=== PATIENT | male | born 1955 ===

== ENCOUNTER 2022-04-12 17:51 | Inpatient (IN) | payer MEDICARE ==
--- NOTE | 2022-04-12 20:12 | XRay Report ---
CHEST 1 VIEW INDICATION: ams. COMPARISON: 03/14/2022 FINDINGS: SUPPORT DEVICES: None. HEART: Within normal limits. LUNGS/PLEURA: No acute air space or interstitial disease. ADDITIONAL FINDINGS: None. IMPRESSION: 1. No acute findings. Signer Name: Filiberto Sun MD Signed: 04/12/2022 8:08 PM Workstation Name: [id number]
--- NOTE | 2022-04-12 20:50 | Cat Scan Report ---
CT head/brain wo con INDICATION / CLINICAL INFORMATION: 66 years Male; ams. TECHNIQUE: Routine CT head without contrast. All CT scans at this location are performed using CT dos e reduction for ALARA by means of automated exposure control. COMPARISON: The study is compared to the previous CT of 03/14/2022. FINDINGS: BRAIN / INTRACRANIAL CONTENTS: The motion degrades image quality. However, there is continued mild ce rebral white matter disease most consistent with microvascular angiopathy. There is also persistent m ild cerebral atrophy. Ventricular system appears unchanged in size and configuration. There is no marina ar CT evidence of acute intracranial hemorrhage or significant mass effect. ORBITS: No significant abnormality of visualized orbits. SINUSES / MASTOIDS: No significant abnormality in the visualized paranasal sinuses or mastoid air cassia ls. CRANIOCERVICAL JUNCTION: No significant abnormality. ADDITIONAL FINDINGS: None. IMPRESSION: 1. The study is limited by motion. However, is continued mild microvascular angiopathy and cerebral a trophy without clear CT evidence of acute intracranial hemorrhage. Signer Name: Toby Tello MD Signed: 04/12/2022 8:46 PM Workstation Name: [id number]
[2022-04-12 21:15] LABS: INR 1.15 (0.87-1.13); Partial Thromboplastin Time 43.7 Sec. (24.2-36.6)
[2022-04-12 21:27] LABS: Alanine Aminotransferase 14 units/L (7-56); Albumin 3.5 g/dL (3.9-5); BUN/Creatinine Ratio 9; Blood Urea Nitrogen 13 mg/dL (9-20); Calcium 9.9 mg/dL (8.4-10.2); Hemolysis Index 7
--- NOTE | 2022-04-13 00:26 | Emergency Department Report ---
ED General Adult HPI - General Chief complaint: Altered Mental Status Stated complaint: AMS Time Seen by Provider: 04/12/22 19:47 Source: patient, EMS Mode of arrival: Stretcher Limitations: No Limitations - History of Present Illness Initial comments: Patient presents to the emergency department via EMS for altered mental status. Patient's family contacted EMS because the patient was outside laying on the ground with a jacket on. Patient is Syriac-speaking but is able to communicate in Martiniquais. Patient is definitely confused but denies having chest pain or shortness of breath -: unknown Improves with: none Worsens with: none Associated Symptoms: denies other symptoms Treatments Prior to Arrival: none - Related Data Home Medications Medication Instructions Recorded Confirmed Last Taken Citalopram Hydrobromide 10 mg PO DAILY 03/15/22 03/15/22 Unknown [Citalopram HBr] Pantoprazole Sodium 1 tab PO DAILY 03/15/22 03/15/22 Unknown Propranolol HCl 20 mg PO BID 03/15/22 03/15/22 Unknown Spironolactone [Aldactone] 25 mg PO QDAY 03/15/22 03/15/22 Unknown Previous Rx's Medication Instructions Recorded Last Taken Type Folic Acid [Folvite] 1 mg PO QDAY #30 03/18/22 Unknown Rx Lactulose 30 ml PO BID 30 Days #2 bottle 03/18/22 Unknown Rx Multivitamin Tab [Multiple Vitamin 1 each PO DAILY #30 tablet 03/18/22 Unknown Rx TAB (Theragran)] Rifaximin [Xifaxan] 550 mg PO BID #60 03/18/22 Unknown Rx Thiamine [Vitamin B-1] 100 mg PO QDAY #30 tablet 03/18/22 Unknown Rx cefUROXime [Ceftin] 2 tab PO Q12H #28 03/18/22 Unknown Rx Allergies Allergy/AdvReac Type Severity Reaction Status Date / Time No Known Allergies Allergy Verified 04/12/22 18:37 ED Review of Systems ROS: Stated complaint: AMS Other details as noted in HPI Comment: Unobtainable due to pts medical conditions ED Past Medical Hx - Past Medical History Hx Liver Disease: Yes - Social History Smoking Status: Never Smoker - Medications Home Medications: Home Medications Medication Instructions Recorded Confirmed Last Taken Type Citalopram Hydrobromide 10 mg PO DAILY 03/15/22 03/15/22 Unknown History [Citalopram HBr] Pantoprazole Sodium 1 tab PO DAILY 03/15/22 03/15/22 Unknown History Propranolol HCl 20 mg PO BID 03/15/22 03/15/22 Unknown History Spironolactone [Aldactone] 25 mg PO QDAY 03/15/22 03/15/22 Unknown History Folic Acid [Folvite] 1 mg PO QDAY #30 03/18/22 Unknown Rx Lactulose 30 ml PO BID 30 Days #2 bottle 03/18/22 Unknown Rx Multivitamin Tab [Multiple Vitamin 1 each PO DAILY #30 tablet 03/18/22 Unknown Rx TAB (Theragran)] Rifaximin [Xifaxan] 550 mg PO BID #60 03/18/22 Unknown Rx Thiamine [Vitamin B-1] 100 mg PO QDAY #30 tablet 03/18/22 Unknown Rx cefUROXime [Ceftin] 2 tab PO Q12H #28 03/18/22 Unknown Rx ED Physical Exam - General Limitations: Language Barrier, Altered Mental Status General appearance: alert, in no apparent distress - Head Head exam: Present: atraumatic, normocephalic - Eye Eye exam: Present: normal appearance, PERRL, EOMI - ENT ENT exam: Present: mucous membranes moist - Neck Neck exam: Present: normal inspection - Respiratory Respiratory exam: Present: normal lung sounds bilaterally. Absent: respiratory distress - Cardiovascular Cardiovascular Exam: Present: regular rate, normal rhythm. Absent: systolic murmur, diastolic murmur, rubs, gallop - GI/Abdominal GI/Abdominal exam: Present: soft, normal bowel sounds. Absent: distended, tenderness - Rectal Rectal exam: Present: deferred - Extremities Exam Extremities exam: Present: normal inspection - Back Exam Back exam: Present: normal inspection - Neurological Exam Neurological exam: Present: altered - Psychiatric Psychiatric exam: Present: normal affect, normal mood - Skin Skin exam: Present: warm, dry, intact, other (Jaundice). Absent: rash ED Course Vital Signs 04/12/22 18:35 Temperature 97.8 F Pulse Rate 87 Respiratory 18 Rate Blood Pressure 130/60 [Left] O2 Sat by Pulse 98 Oximetry ED Medical Decision Making - Lab Data Result diagrams: 04/13/22 00:53 04/12/22 20:43 Lab Results 04/12/22 04/12/22 04/12/22 Range/Units 20:43 20:43 20:43 PT 16.0 H (12.2-14.9) Sec. INR 1.15 H (0.87-1.13) APTT 43.7 H (24.2-36.6) Sec. Sodium 135 L (137-145) mmol/L Potassium 4.3 (3.6-5.0) mmol/L Chloride 103.8 (98-107) mmol/L Carbon Dioxide 18 L (22-30) mmol/L Anion Gap 18 mmol/L BUN 13 (9-20) mg/dL Creatinine 1.4 H (0.8-1.3) mg/dL Estimated GFR 51 ml/min BUN/Creatinine Ratio 9 % Glucose 122 H (75-100) mg/dL Lactic Acid 1.60 (0.7-2.0) mmol/L Calcium 9.9 (8.4-10.2) mg/dL Total Bilirubin 1.00 (0.1-1.2) mg/dL AST 26 (5-40) units/L ALT 14 (7-56) units/L Alkaline Phosphatase 88 (35-129) units/L Ammonia (25-60) umol/L Total Creatine Kinase 44 L (55-170) units/L Troponin T < 0.010 (0.00-0.029) ng/mL Total Protein 7.8 (6.3-8.2) g/dL Albumin 3.5 L (3.9-5) g/dL Albumin/Globulin Ratio 0.8 % TSH (0.270-4.200) mlU/mL Salicylates (2.8-20.0) mg/dL Acetaminophen (10.0-30.0) ug/mL Plasma/Serum Alcohol (0-0.07) % 04/12/22 04/12/22 04/12/22 Range/Units 20:43 20:43 20:43 PT (12.2-14.9) Sec. INR (0.87-1.13) APTT (24.2-36.6) Sec. Sodium (137-145) mmol/L Potassium (3.6-5.0) mmol/L Chloride (98-107) mmol/L Carbon Dioxide (22-30) mmol/L Anion Gap mmol/L BUN (9-20) mg/dL Creatinine (0.8-1.3) mg/dL Estimated GFR ml/min BUN/Creatinine Ratio % Glucose (75-100) mg/dL Lactic Acid (0.7-2.0) mmol/L Calcium (8.4-10.2) mg/dL Total Bilirubin (0.1-1.2) mg/dL AST (5-40) units/L ALT (7-56) units/L Alkaline Phosphatase (35-129) units/L Ammonia 40.0 (25-60) umol/L Total Creatine Kinase (55-170) units/L Troponin T (0.00-0.029) ng/mL Total Protein (6.3-8.2) g/dL Albumin (3.9-5) g/dL Albumin/Globulin Ratio % TSH 1.480 (0.270-4.200) mlU/mL Salicylates 1.5 L (2.8-20.0) mg/dL Acetaminophen (10.0-30.0) ug/mL Plasma/Serum Alcohol (0-0.07) % 04/12/22 04/12/22 Range/Units 20:43 20:43 PT (12.2-14.9) Sec. INR (0.87-1.13) APTT (24.2-36.6) Sec. Sodium (137-145) mmol/L Potassium (3.6-5.0) mmol/L Chloride (98-107) mmol/L Carbon Dioxide (22-30) mmol/L Anion Gap mmol/L BUN (9-20) mg/dL Creatinine (0.8-1.3) mg/dL Estimated GFR ml/min BUN/Creatinine Ratio % Glucose (75-100) mg/dL Lactic Acid (0.7-2.0) mmol/L Calcium (8.4-10.2) mg/dL Total Bilirubin (0.1-1.2) mg/dL AST (5-40) units/L ALT (7-56) units/L Alkaline Phosphatase (35-129) units/L Ammonia (25-60) umol/L Total Creatine Kinase (55-170) units/L Troponin T (0.00-0.029) ng/mL Total Protein (6.3-8.2) g/dL Albumin (3.9-5) g/dL Albumin/Globulin Ratio % TSH (0.270-4.200) mlU/mL Salicylates (2.8-20.0) mg/dL Acetaminophen 5.0 L (10.0-30.0) ug/mL Plasma/Serum Alcohol < 0.01 (0-0.07) % - EKG Data -: EKG Interpreted by Me EKG shows normal: sinus rhythm Rate: normal - Radiology Data Radiology results: report reviewed Critical care attestation.: If time is entered above; I have spent that time in minutes in the direct care of this critically ill patient, excluding procedure time. ED Disposition Clinical Impression: Altered mental status Disposition: ADMITTED INPATIENT Is pt being admited?: Yes Does the pt Need Aspirin: No Condition: Fair Referrals: PRIMARY CARE, [Primary Care Provider] - 3-5 Days
[2022-04-13 01:00] LABS: Basophils % (Auto) 0.2 % (0.0-1.8); Eosinophils % (Auto) 0.1 % (0.0-4.3); Hemoglobin 10.9 gm/dl (11.8-15.2); Lymphocytes # (Auto) 0.8 K/mm3 (1.2-5.4); Lymphocytes % (Auto) 6.5 % (13.4-35.0); Mean Corpuscular HGB Conc 32 % (32-34); Mean Corpuscular Volume 84 fl (84-94); Monocytes # (Auto) 0.9 K/mm3 (0.0-0.8); Monocytes % (Auto) 7.3 % (0.0-7.3); Red Blood Count 4.04 M/mm3 (3.65-5.03); Red Cell Distribution Width 14.5 % (13.2-15.2)
[2022-04-13 01:03] LABS: Platelet Count 71 K/mm3 (140-440)
[2022-04-13] MEDS ORDERED: ALBUTEROL 2.5 MG/3 ML NEBU IH PRN (03:47)
[2022-04-13] MEDS ORDERED: MORPHINE 4 MG/1 ML INJ IV PRN (03:47)
[2022-04-13] MEDS ORDERED: ONDANSETRON 4 MG/2 ML INJ IV PRN (03:47)
[2022-04-13] MEDS ORDERED: ACETAMINOPHEN 325 MG TAB PO PRN (03:47)
--- NOTE | 2022-04-13 03:55 | History and Physical Report ---
History of Present Illness Date of examination: 04/13/22 Date of admission: 04/13/22 Chief complaint: Altered mental status History of present illness: 66 years old male with history of alcohol abuse, hepatic cirrhosis, thrombocytopenia was brought to the emergency department via EMS for altered mental status. Patient's family contacted EMS because the patient was outside laying on the ground with a jacket on. Patient is English-speaking but is able to communicate in Maori. Patient is definitely confused but denies having chest pain or shortness of breath In the emergency room initial CT scan of the head shows no acute intracranial abnormality.work up showed normal ct and x ray , ua shwoed uti normal ammonia , abx given wbc is elevated Past History Past Medical History: liver disease, other (Alcohol abuse) Past Surgical History: No surgical history Social history: alcohol abuse Family history: no significant family history Medications and Allergies Allergies Allergy/AdvReac Type Severity Reaction Status Date / Time No Known Allergies Allergy Verified 04/12/22 18:37 Home Medications Medication Instructions Recorded Confirmed Last Taken Type Citalopram Hydrobromide 10 mg PO DAILY 03/15/22 03/15/22 Unknown History [Citalopram HBr] Pantoprazole Sodium 1 tab PO DAILY 03/15/22 03/15/22 Unknown History Propranolol HCl 20 mg PO BID 03/15/22 03/15/22 Unknown History Spironolactone [Aldactone] 25 mg PO QDAY 03/15/22 03/15/22 Unknown History Folic Acid [Folvite] 1 mg PO QDAY #30 03/18/22 Unknown Rx Lactulose 30 ml PO BID 30 Days #2 bottle 03/18/22 Unknown Rx Multivitamin Tab [Multiple Vitamin 1 each PO DAILY #30 tablet 03/18/22 Unknown Rx TAB (Theragran)] Rifaximin [Xifaxan] 550 mg PO BID #60 03/18/22 Unknown Rx Thiamine [Vitamin B-1] 100 mg PO QDAY #30 tablet 03/18/22 Unknown Rx cefUROXime [Ceftin] 2 tab PO Q12H #28 03/18/22 Unknown Rx Review of Systems All systems: negative Constitutional: fatigue, malaise, lethargy, other (Altered mental status) Exam - Constitutional Vitals: Temp Pulse Resp BP Pulse Ox 97.8 F 87 18 130/60 98 04/12/22 18:35 04/12/22 18:35 04/12/22 18:35 04/12/22 18:35 04/12/22 18:35 General appearance: Present: no acute distress, well-nourished - EENT Eyes: Present: PERRL ENT: hearing intact, clear oral mucosa - Neck Neck: Present: supple, normal ROM - Respiratory Respiratory effort: normal Respiratory: bilateral: CTA - Cardiovascular Heart Sounds: Present: S1 & S2. Absent: rub, click - Extremities Extremities: pulses symmetrical, No edema Peripheral Pulses: within normal limits - Abdominal General gastrointestinal: Present: soft, non-tender, non-distended, normal bowel sounds Male genitourinary: Present: normal - Integumentary Integumentary: Present: clear, warm, dry - Musculoskeletal Musculoskeletal: gait normal, strength equal bilaterally - Psychiatric Psychiatric: other (Patient is altered mental status) - Neurologic Neurologic: CNII-XII intact, moves all extremities HEART Score - HEART Score Troponin: Troponin T < 0.010 ng/mL (0.00-0.029) 04/12/22 20:43 Results - Labs CBC & Chem 7: 04/13/22 00:53 04/12/22 20:43 Labs: Laboratory Last Values WBC 12.3 K/mm3 (4.5-11.0) H 04/13/22 00:53 RBC 4.04 M/mm3 (3.65-5.03) 04/13/22 00:53 Hgb 10.9 gm/dl (11.8-15.2) L 04/13/22 00:53 Hct 34.0 % (35.5-45.6) L 04/13/22 00:53 MCV 84 fl (84-94) 04/13/22 00:53 MCH 27 pg (28-32) L 04/13/22 00:53 MCHC 32 % (32-34) 04/13/22 00:53 RDW 14.5 % (13.2-15.2) 04/13/22 00:53 Plt Count 71 K/mm3 (140-440) L 04/13/22 00:53 Lymph % (Auto) 6.5 % (13.4-35.0) L 04/13/22 00:53 [place] % (Auto) 7.3 % (0.0-7.3) 04/13/22 00:53 Eos % (Auto) 0.1 % (0.0-4.3) 04/13/22 00:53 Baso % (Auto) 0.2 % (0.0-1.8) 04/13/22 00:53 Lymph # (Auto) 0.8 K/mm3 (1.2-5.4) L 04/13/22 00:53 [place] # (Auto) 0.9 K/mm3 (0.0-0.8) H 04/13/22 00:53 Eos # (Auto) 0.0 K/mm3 (0.0-0.4) 04/13/22 00:53 Baso # (Auto) 0.0 K/mm3 (0.0-0.1) 04/13/22 00:53 Seg Neutrophils % 85.9 % (40.0-70.0) H 04/13/22 00:53 Seg Neutrophils # 10.6 K/mm3 (1.8-7.7) H 04/13/22 00:53 PT 16.0 Sec. (12.2-14.9) H 04/12/22 20:43 INR 1.15 (0.87-1.13) H 04/12/22 20:43 APTT 43.7 Sec. (24.2-36.6) H 04/12/22 20:43 Sodium 135 mmol/L (137-145) L 04/12/22 20:43 Potassium 4.3 mmol/L (3.6-5.0) 04/12/22 20:43 Chloride 103.8 mmol/L (98-107) 04/12/22 20:43 Carbon Dioxide 18 mmol/L (22-30) L 04/12/22 20:43 Anion Gap 18 mmol/L 04/12/22 20:43 BUN 13 mg/dL (9-20) 04/12/22 20:43 Creatinine 1.4 mg/dL (0.8-1.3) H 04/12/22 20:43 Estimated GFR 51 ml/min 04/12/22 20:43 BUN/Creatinine Ratio 9 % 04/12/22 20:43 Glucose 122 mg/dL (75-100) H 04/12/22 20:43 Lactic Acid 1.60 mmol/L (0.7-2.0) 04/12/22 20:43 Calcium 9.9 mg/dL (8.4-10.2) 04/12/22 20:43 Total Bilirubin 1.00 mg/dL (0.1-1.2) 04/12/22 20:43 AST 26 units/L (5-40) 04/12/22 20:43 ALT 14 units/L (7-56) 04/12/22 20:43 Alkaline Phosphatase 88 units/L (35-129) 04/12/22 20:43 Ammonia 40.0 umol/L (25-60) 04/12/22 20:43 Total Creatine Kinase 44 units/L (55-170) L 04/12/22 20:43 Troponin T < 0.010 ng/mL (0.00-0.029) 04/12/22 20:43 Total Protein 7.8 g/dL (6.3-8.2) 04/12/22 20:43 Albumin 3.5 g/dL (3.9-5) L 04/12/22 20:43 Albumin/Globulin Ratio 0.8 % 04/12/22 20:43 TSH 1.480 mlU/mL (0.270-4.200) 04/12/22 20:43 Salicylates 1.5 mg/dL (2.8-20.0) L 04/12/22 20:43 Acetaminophen 5.0 ug/mL (10.0-30.0) L 04/12/22 20:43 Plasma/Serum Alcohol < 0.01 % (0-0.07) 04/13/22 01:44 Microbiology: Microbiology 04/12/22 20:43 Peripheral/Venous Blood Culture - Preliminary Culture in Progress 04/12/22 20:43 Peripheral/Venous Blood Culture - Preliminary Culture in Progress - Imaging and Cardiology Chest x-ray: report reviewed CT Scan - head: report reviewed Assessment and Plan VTE prophylaxis?: Mechanical Plan of care discussed with patient/family: Yes - Patient Problems (1) Acute metabolic encephalopathy Current Visit: No Status: Acute Plan to address problem: Admit the patient to the medical floor telemetry. Acute metabolic encephalopathy is most likely secondary to UTI and liver cirrhosis. Oxygen via nasal cannula 3 L/min. DuoNeb by nebulizer every 4 hours. Pepcid 20 mg p.o. twice daily. Cipro Oxyzyme antibiotic orally. Recheck CBC BMP in the morning (2) Alcohol abuse Current Visit: No Status: Acute Plan to address problem: We will put the patient on thiamine folic acid and banana bag daily. We counseled the patient regarding quit drinking. (3) Cirrhosis Current Visit: No Status: Acute Plan to address problem: Pepcid 20 mg p.o. twice daily. Quit drinking. Continue home medication. Recheck CMP in the morning (4) Thrombocytopenia Current Visit: No Status: Acute Plan to address problem: We will monitor the patient closely. Recheck CBC in the morning (5) DVT prophylaxis Current Visit: No Status: Acute Plan to address problem: SCD for DVT prophylaxis. Pepcid 20 mg p.o. twice daily for GI prophylaxis. Patient is a full code
[2022-04-13] MEDS ORDERED: THIAMINE 100 MG, FOLIC ACID 1 MG, MULTIPLE VITAMIN INJ, ADULT 10 ML in SODIUM CHLORIDE ... IV ONE (04:30)
[2022-04-13] MEDS ORDERED: IPRATROPIUM/ALBUTEROL SULFATE 3 ML AMPUL.NEB IH SCH (08:00)
[2022-04-13] MEDS: D5W/0.45% NACL 1,000 ML IV SCH ×2 (08:20→18:44)
--- NOTE | 2022-04-13 09:22 | Progress Note ---
Assessment and Plan Assessment and plan: VTE prophylaxis?: Mechanical Plan of care discussed with patient/family: Yes --Acute metabolic encephalopathy Admit the patient to the medical floor telemetry. Acute metabolic encephalopathy is most likely secondary to UTI and liver cirrhosis. Oxygen via nasal cannula 3 L/min. DuoNeb by nebulizer every 4 hours. Pepcid 20 mg p.o. twice daily. Cipro Oxyzyme antibiotic orally. Recheck CBC BMP in the morning --Alcohol abuse We will put the patient on thiamine folic acid and banana bag daily. We counseled the patient regarding quit drinking. --Cirrhosis Pepcid 20 mg p.o. twice daily. Quit drinking. Continue home medication. Recheck CMP in the morning -- Thrombocytopenia We will monitor the patient closely. Due to alcoholic liver disease and cirrhosis Closely monitor -- DVT prophylaxis SCD for DVT prophylaxis. Pepcid 20 mg p.o. twice daily for GI prophylaxis. Patient is a full code Closely monitor the patient and adjust management as needed Plan of care reviewed with the patient and his nurse Closely monitor the patient Prolonged care inpatient; 35 minutes History Interval history: Seen and examined the patient at the bedside this morning Patient's chart and medications reviewed Patient was admitted for toxic metabolic encephalopathy, and alcohol withdrawals Patient is alert and awake responding appropriately Very minimal tremulousness Vital signs noted Hospitalist Physical - Constitutional Vitals: Temp Pulse Resp BP Pulse Ox 100.6 F H 66 15 104/52 97 04/13/22 08:27 04/13/22 08:27 04/13/22 08:27 04/13/22 08:27 04/13/22 08:27 General appearance: Present: no acute distress, well-nourished, obese - EENT Eyes: Present: PERRL, EOM intact - Neck Neck: Present: supple, normal ROM - Respiratory Respiratory effort: normal Respiratory: bilateral: diminished, negative: rales, rhonchi, wheezing - Cardiovascular Rhythm: regular Heart Sounds: Present: S1 & S2 - Extremities Extremities: no ischemia, No edema - Abdominal General gastrointestinal: soft, non-tender, non-distended, normal bowel sounds - Integumentary Integumentary: Present: clear, warm - Psychiatric Psychiatric: appropriate mood/affect, cooperative - Neurologic Neurologic: moves all extremities HEART Score - HEART Score Troponin: Troponin T < 0.010 ng/mL (0.00-0.029) 04/12/22 20:43 Results - Labs CBC & Chem 7: 04/14/22 04:47 04/14/22 04:47 Labs: Laboratory Last Values WBC 12.3 K/mm3 (4.5-11.0) H 04/13/22 00:53 RBC 4.04 M/mm3 (3.65-5.03) 04/13/22 00:53 Hgb 10.9 gm/dl (11.8-15.2) L 04/13/22 00:53 Hct 34.0 % (35.5-45.6) L 04/13/22 00:53 MCV 84 fl (84-94) 04/13/22 00:53 MCH 27 pg (28-32) L 04/13/22 00:53 MCHC 32 % (32-34) 04/13/22 00:53 RDW 14.5 % (13.2-15.2) 04/13/22 00:53 Plt Count 71 K/mm3 (140-440) L 04/13/22 00:53 Lymph % (Auto) 6.5 % (13.4-35.0) L 04/13/22 00:53 [place] % (Auto) 7.3 % (0.0-7.3) 04/13/22 00:53 Eos % (Auto) 0.1 % (0.0-4.3) 04/13/22 00:53 Baso % (Auto) 0.2 % (0.0-1.8) 04/13/22 00:53 Lymph # (Auto) 0.8 K/mm3 (1.2-5.4) L 04/13/22 00:53 [place] # (Auto) 0.9 K/mm3 (0.0-0.8) H 04/13/22 00:53 Eos # (Auto) 0.0 K/mm3 (0.0-0.4) 04/13/22 00:53 Baso # (Auto) 0.0 K/mm3 (0.0-0.1) 04/13/22 00:53 Seg Neutrophils % 85.9 % (40.0-70.0) H 04/13/22 00:53 Seg Neutrophils # 10.6 K/mm3 (1.8-7.7) H 04/13/22 00:53 PT 16.0 Sec. (12.2-14.9) H 04/12/22 20:43 INR 1.15 (0.87-1.13) H 04/12/22 20:43 APTT 43.7 Sec. (24.2-36.6) H 04/12/22 20:43 Sodium 135 mmol/L (137-145) L 04/12/22 20:43 Potassium 4.3 mmol/L (3.6-5.0) 04/12/22 20:43 Chloride 103.8 mmol/L (98-107) 04/12/22 20:43 Carbon Dioxide 18 mmol/L (22-30) L 04/12/22 20:43 Anion Gap 18 mmol/L 04/12/22 20:43 BUN 13 mg/dL (9-20) 04/12/22 20:43 Creatinine 1.4 mg/dL (0.8-1.3) H 04/12/22 20:43 Estimated GFR 51 ml/min 04/12/22 20:43 BUN/Creatinine Ratio 9 % 04/12/22 20:43 Glucose 122 mg/dL (75-100) H 04/12/22 20:43 Lactic Acid 1.60 mmol/L (0.7-2.0) 04/12/22 20:43 Calcium 9.9 mg/dL (8.4-10.2) 04/12/22 20:43 Total Bilirubin 1.00 mg/dL (0.1-1.2) 04/12/22 20:43 AST 26 units/L (5-40) 04/12/22 20:43 ALT 14 units/L (7-56) 04/12/22 20:43 Alkaline Phosphatase 88 units/L (35-129) 04/12/22 20:43 Ammonia 40.0 umol/L (25-60) 04/12/22 20:43 Total Creatine Kinase 44 units/L (55-170) L 04/12/22 20:43 Troponin T < 0.010 ng/mL (0.00-0.029) 04/12/22 20:43 Total Protein 7.8 g/dL (6.3-8.2) 04/12/22 20:43 Albumin 3.5 g/dL (3.9-5) L 04/12/22 20:43 Albumin/Globulin Ratio 0.8 % 04/12/22 20:43 TSH 1.480 mlU/mL (0.270-4.200) 04/12/22 20:43 Salicylates 1.5 mg/dL (2.8-20.0) L 04/12/22 20:43 Acetaminophen 5.0 ug/mL (10.0-30.0) L 04/12/22 20:43 Plasma/Serum Alcohol < 0.01 % (0-0.07) 04/13/22 01:44 Microbiology: Microbiology 04/12/22 20:43 Peripheral/Venous Blood Culture - Preliminary Culture in Progress 04/12/22 20:43 Peripheral/Venous Blood Culture - Preliminary Culture in Progress Active Medications - Current Medications Current Medications: Generic Name Dose Route Start Last Admin Trade Name Freq PRN Reason Stop Dose Admin Acetaminophen 650 mg 04/13/22 03:47 Acetaminophen 325 Mg Tab PO Q4H PRN Pain MILD(1-3)/Fever >100.5/LAINEZ Albuterol 2.5 mg 04/13/22 03:47 Albuterol 2.5 Mg/3 Ml Nebu IH Q3HRT PRN Shortness Of Breath Cefuroxime Axetil 500 mg 04/13/22 08:00 Cefuroxime 250 Mg Tab PO Q12H [facility] Famotidine 20 mg 04/13/22 10:00 Famotidine 20 Mg Tab PO BID NORMAN Folic Acid 1 mg 04/13/22 10:00 Folic Acid 1 Mg Tab PO QDAY [facility] Dextrose/Sodium Chloride 1,000 mls @ 100 mls/hr 04/13/22 04:00 04/13/22 08:20 D5/0.45ns IV 100 mls/hr DIRECT NORMAN Administration Lactulose 20 gm 04/13/22 10:00 Lactulose 20 Gm/30 Ml Oral Liqd PO BID [facility] Morphine Sulfate 2 mg 04/13/22 03:47 Morphine 2 Mg/1 Ml Inj IV Q4H PRN Pain, Moderate (4-6) Morphine Sulfate 4 mg 04/13/22 03:47 Morphine 4 Mg/1 Ml Inj IV Q4H PRN Pain , Severe (7-10) Multivitamins 1 each 04/13/22 10:00 Multivitamins ,Therapeutic Tab PO DAILY [facility] Ondansetron HCl 4 mg 04/13/22 03:47 Ondansetron 4 Mg/2 Ml Inj IV Q8H PRN Nausea And Vomiting Propranolol HCl 20 mg 04/13/22 10:00 Propranolol 10 Mg Tab PO BID [facility] Rifaximin 550 mg 04/13/22 10:00 Rifaximin 550 Mg Tab PO BID [facility] Sodium Chloride 10 ml 04/13/22 10:00 Sodium Chloride 0.9% 10 Ml Flush Syringe IV BID [facility] Sodium Chloride 10 ml 04/13/22 03:47 Sodium Chloride 0.9% 10 Ml Flush Syringe IV PRN PRN LINE FLUSH Spironolactone 25 mg 04/13/22 10:00 Spironolactone 25 Mg Tab PO QDAY [facility] Thiamine HCl 100 mg 04/13/22 10:00 Thiamine 100 Mg Tab PO QDAY [facility]
[2022-04-13] MEDS ORDERED: LACTULOSE ENEMA 1000 ML PR SCH ×2 (10:00)
--- NOTE | 2022-04-13 10:07 | Electrocardiograph Report ---
[facility] Test Date: 2022-04-12 Test Time: 19:40:02 Pat Name: COLLEEN MERCEDES Department: Room: A376 1 Gender: M [employer]: IZA : 1955 Requested By: SELAM PEARL Order Number: [id number] Reading MD: Jc Jimenez Measurements Intervals [place] Rate: 81 P: 38 MN: 254 QRS: 74 QRSD: 94 T: 42 QT: 365 QTc: 425 Interpretive Statements Sinus rhythm Prolonged [place] interval Compared to ECG 03/15/2022 07:05:40 No significant changes Electronically Signed On 04-13-2022 10:07:22 EDT by Jc Jimenez
[2022-04-13] MEDS: FOLIC ACID 1 MG TAB PO SCH (10:20)
[2022-04-13] MEDS: MORPHINE 2 MG/1 ML INJ IV PRN (10:20)
[2022-04-13] MEDS: LACTULOSE 20 GM/30 ML ORAL LIQD PO SCH ×2 (10:20→23:10)
[2022-04-13] MEDS: SPIRONOLACTONE 25 MG TAB PO SCH (10:20)
[2022-04-13] MEDS: THIAMINE 100 MG TAB PO SCH (10:21)
[2022-04-13] MEDS: MULTIVITAMINS ,THERAPEUTIC TAB PO SCH (10:21)
[2022-04-13] MEDS: RIFAXIMIN 550 MG TAB PO SCH ×2 (10:21→23:10)
[2022-04-13] MEDS: FAMOTIDINE 20 MG TAB PO SCH ×2 (10:21→23:10)
[2022-04-13] MEDS: PROPRANOLOL 10 MG TAB PO SCH ×2 (14:35→23:19)
[2022-04-14] MEDS: D5W/0.45% NACL 1,000 ML IV SCH ×2 (05:06→18:08)
[2022-04-14 05:29] LABS: Basophils % (Auto) 0.5 % (0.0-1.8); Eosinophils # (Auto) 0.1 K/mm3 (0.0-0.4); Eosinophils % (Auto) 3.5 % (0.0-4.3); Hematocrit 29.6 % (35.5-45.6); Hemoglobin 9.6 gm/dl (11.8-15.2); Lymphocytes # (Auto) 0.8 K/mm3 (1.2-5.4); Lymphocytes % (Auto) 18.9 % (13.4-35.0); Mean Corpuscular HGB Conc 32 % (32-34); Mean Corpuscular Volume 84 fl (84-94); Monocytes # (Auto) 0.5 K/mm3 (0.0-0.8); Monocytes % (Auto) 12.7 % (0.0-7.3); Red Blood Count 3.51 M/mm3 (3.65-5.03); Red Cell Distribution Width 14.7 % (13.2-15.2)
[2022-04-14 05:30] LABS: Platelet Count 54 K/mm3 (140-440)
[2022-04-14 05:49] LABS: Alanine Aminotransferase 14 units/L (7-56); Albumin 2.7 g/dL (3.9-5); BUN/Creatinine Ratio 12; Blood Urea Nitrogen 14 mg/dL (9-20); Calcium 8.5 mg/dL (8.4-10.2); Hemolysis Index 81
[2022-04-14] MEDS: MULTIVITAMINS ,THERAPEUTIC TAB PO SCH (12:39)
[2022-04-14] MEDS: LACTULOSE 20 GM/30 ML ORAL LIQD PO SCH ×2 (12:39→23:18)
[2022-04-14] MEDS: RIFAXIMIN 550 MG TAB PO SCH ×2 (12:39→23:18)
[2022-04-14] MEDS: FAMOTIDINE 20 MG TAB PO SCH ×2 (12:40→23:18)
[2022-04-14] MEDS: THIAMINE 100 MG TAB PO SCH (12:40)
[2022-04-14] MEDS: PROPRANOLOL 10 MG TAB PO SCH ×2 (12:45→23:00)
[2022-04-14] MEDS: FOLIC ACID 1 MG TAB PO SCH (12:46)
[2022-04-14] MEDS: SPIRONOLACTONE 25 MG TAB PO SCH (12:46)
--- NOTE | 2022-04-14 19:26 | Progress Note ---
Assessment and Plan Assessment and plan: VTE prophylaxis?: Mechanical Plan of care discussed with patient/family: Yes --Acute metabolic encephalopathy Admit the patient to the medical floor telemetry. Acute metabolic encephalopathy is most likely secondary to UTI and liver cirrhosis. Oxygen via nasal cannula 3 L/min. DuoNeb by nebulizer every 4 hours. Pepcid 20 mg p.o. twice daily. Cipro Oxyzyme antibiotic orally. Recheck CBC BMP in the morning --Alcohol abuse We will put the patient on thiamine folic acid and banana bag daily. We counseled the patient regarding quit drinking. --Cirrhosis Pepcid 20 mg p.o. twice daily. Quit drinking. Continue home medication. Recheck CMP in the morning -- Thrombocytopenia We will monitor the patient closely. Due to alcoholic liver disease and cirrhosis Closely monitor -- DVT prophylaxis SCD for DVT prophylaxis. Pepcid 20 mg p.o. twice daily for GI prophylaxis. Patient is a full code Closely monitor the patient and adjust management as needed Plan of care reviewed with the patient and his nurse Closely monitor the patient 04/14/2022; patient's symptoms significantly improved Today patient is more alert and awake, ambulate as tolerated Possible discharge in 1 to 2 days if stable History Interval history: I have seen and examined the patient at the bedside Patient's chart and medications reviewed Patient feels slightly better Mild tremulousness probably his baseline Vital signs noted Hospitalist Physical - Constitutional Vitals: Temp Pulse Resp BP Pulse Ox 98.5 F 58 L 16 119/65 98 04/14/22 12:47 04/14/22 12:47 04/14/22 12:47 04/14/22 12:47 04/14/22 12:47 General appearance: Present: no acute distress, well-nourished, obese - EENT Eyes: Present: PERRL, EOM intact - Neck Neck: Present: supple, normal ROM - Respiratory Respiratory effort: normal Respiratory: bilateral: diminished, negative: rales, rhonchi, wheezing - Cardiovascular Rhythm: regular Heart Sounds: Present: S1 & S2 - Extremities Extremities: no ischemia, No edema - Abdominal General gastrointestinal: soft, non-tender, non-distended, normal bowel sounds - Integumentary Integumentary: Present: clear, warm - Psychiatric Psychiatric: appropriate mood/affect, cooperative - Neurologic Neurologic: CNII-XII intact, moves all extremities HEART Score - HEART Score Troponin: Troponin T < 0.010 ng/mL (0.00-0.029) 04/12/22 20:43 Results - Labs CBC & Chem 7: 04/14/22 04:47 04/14/22 04:47 Labs: Laboratory Last Values WBC 4.3 K/mm3 (4.5-11.0) L 04/14/22 04:47 RBC 3.51 M/mm3 (3.65-5.03) L 04/14/22 04:47 Hgb 9.6 gm/dl (11.8-15.2) L 04/14/22 04:47 Hct 29.6 % (35.5-45.6) L 04/14/22 04:47 MCV 84 fl (84-94) 04/14/22 04:47 MCH 27 pg (28-32) L 04/14/22 04:47 MCHC 32 % (32-34) 04/14/22 04:47 RDW 14.7 % (13.2-15.2) 04/14/22 04:47 Plt Count 54 K/mm3 (140-440) L 04/14/22 04:47 Lymph % (Auto) 18.9 % (13.4-35.0) 04/14/22 04:47 [place] % (Auto) 12.7 % (0.0-7.3) H 04/14/22 04:47 Eos % (Auto) 3.5 % (0.0-4.3) 04/14/22 04:47 Baso % (Auto) 0.5 % (0.0-1.8) 04/14/22 04:47 Lymph # (Auto) 0.8 K/mm3 (1.2-5.4) L 04/14/22 04:47 [place] # (Auto) 0.5 K/mm3 (0.0-0.8) 04/14/22 04:47 Eos # (Auto) 0.1 K/mm3 (0.0-0.4) 04/14/22 04:47 Baso # (Auto) 0.0 K/mm3 (0.0-0.1) 04/14/22 04:47 Seg Neutrophils % 64.4 % (40.0-70.0) 04/14/22 04:47 Seg Neutrophils # 2.8 K/mm3 (1.8-7.7) 04/14/22 04:47 PT 16.0 Sec. (12.2-14.9) H 04/12/22 20:43 INR 1.15 (0.87-1.13) H 04/12/22 20:43 APTT 43.7 Sec. (24.2-36.6) H 04/12/22 20:43 Sodium 137 mmol/L (137-145) 04/14/22 04:47 Potassium 3.9 mmol/L (3.6-5.0) 04/14/22 04:47 Chloride 110.3 mmol/L (98-107) H 04/14/22 04:47 Carbon Dioxide 18 mmol/L (22-30) L 04/14/22 04:47 Anion Gap 13 mmol/L 04/14/22 04:47 BUN 14 mg/dL (9-20) 04/14/22 04:47 Creatinine 1.2 mg/dL (0.8-1.3) 04/14/22 04:47 Estimated GFR > 60 ml/min 04/14/22 04:47 BUN/Creatinine Ratio 12 % 04/14/22 04:47 Glucose 94 mg/dL (75-100) 04/14/22 04:47 Lactic Acid 1.60 mmol/L (0.7-2.0) 04/12/22 20:43 Calcium 8.5 mg/dL (8.4-10.2) 04/14/22 04:47 Total Bilirubin 0.70 mg/dL (0.1-1.2) 04/14/22 04:47 AST 36 units/L (5-40) 04/14/22 04:47 ALT 14 units/L (7-56) 04/14/22 04:47 Alkaline Phosphatase 64 units/L (35-129) 04/14/22 04:47 Ammonia 40.0 umol/L (25-60) 04/12/22 20:43 Total Creatine Kinase 44 units/L (55-170) L 04/12/22 20:43 Troponin T < 0.010 ng/mL (0.00-0.029) 04/12/22 20:43 Total Protein 6.6 g/dL (6.3-8.2) 04/14/22 04:47 Albumin 2.7 g/dL (3.9-5) L 04/14/22 04:47 Albumin/Globulin Ratio 0.7 % 04/14/22 04:47 TSH 1.480 mlU/mL (0.270-4.200) 04/12/22 20:43 Salicylates 1.5 mg/dL (2.8-20.0) L 04/12/22 20:43 Acetaminophen 5.0 ug/mL (10.0-30.0) L 04/12/22 20:43 Plasma/Serum Alcohol < 0.01 % (0-0.07) 04/13/22 01:44 Microbiology: Microbiology 04/12/22 20:43 Peripheral/Venous Blood Culture - Preliminary NO GROWTH AFTER 24 HOURS 04/12/22 20:43 Peripheral/Venous Blood Culture - Preliminary NO GROWTH AFTER 24 HOURS Peres/IV: Voiding Method Toilet Active Medications - Current Medications Current Medications: Generic Name Dose Route Start Last Admin Trade Name Freq PRN Reason Stop Dose Admin Acetaminophen 650 mg 04/13/22 03:47 04/13/22 10:20 Acetaminophen 325 Mg Tab PO 650 mg Q4H PRN Administration Pain MILD(1-3)/Fever >100.5/LAINEZ Albuterol 2.5 mg 04/13/22 03:47 Albuterol 2.5 Mg/3 Ml Nebu IH Q3HRT PRN Shortness Of Breath Famotidine 20 mg 04/13/22 10:00 04/14/22 12:40 Famotidine 20 Mg Tab PO 20 mg BID NORMAN Administration Folic Acid 1 mg 04/13/22 10:00 04/14/22 12:46 Folic Acid 1 Mg Tab PO 1 mg QDAY NORMAN Administration Dextrose/Sodium Chloride 1,000 mls @ 100 mls/hr 04/13/22 04:00 04/14/22 18:08 D5/0.45ns IV 100 mls/hr DIRECT NORMAN Administration Lactulose 20 gm 04/13/22 10:00 04/14/22 12:39 Lactulose 20 Gm/30 Ml Oral Liqd PO 20 gm BID NORMAN Administration Morphine Sulfate 2 mg 04/13/22 03:47 04/13/22 10:20 Morphine 2 Mg/1 Ml Inj IV 2 mg Q4H PRN Administration Pain, Moderate (4-6) Morphine Sulfate 4 mg 04/13/22 03:47 Morphine 4 Mg/1 Ml Inj IV Q4H PRN Pain , Severe (7-10) Multivitamins 1 each 04/13/22 10:00 04/14/22 12:39 Multivitamins ,Therapeutic Tab PO 1 each DAILY NORMAN Administration Ondansetron HCl 4 mg 04/13/22 03:47 Ondansetron 4 Mg/2 Ml Inj IV Q8H PRN Nausea And Vomiting Propranolol HCl 20 mg 04/13/22 10:00 04/14/22 12:45 Propranolol 10 Mg Tab PO 20 mg BID NORMAN Administration Rifaximin 550 mg 04/13/22 10:00 04/14/22 12:39 Rifaximin 550 Mg Tab PO 550 mg BID NORMAN Administration Sodium Chloride 10 ml 04/13/22 10:00 04/14/22 12:40 Sodium Chloride 0.9% 10 Ml Flush Syringe IV 10 ml BID NORMAN Administration Sodium Chloride 10 ml 04/13/22 03:47 Sodium Chloride 0.9% 10 Ml Flush Syringe IV PRN PRN LINE FLUSH Spironolactone 25 mg 04/13/22 10:00 04/14/22 12:46 Spironolactone 25 Mg Tab PO 25 mg QDAY NORMAN Administration Thiamine HCl 100 mg 04/13/22 10:00 04/14/22 12:40 Thiamine 100 Mg Tab PO 100 mg QDAY NORMAN Administration
--- NOTE | 2022-04-15 08:22 | Progress Note ---
Assessment and Plan Assessment and plan: VTE prophylaxis?: Mechanical Plan of care discussed with patient/family: Yes --Acute metabolic encephalopathy Admit the patient to the medical floor telemetry. Acute metabolic encephalopathy is most likely secondary to UTI and liver cirrhosis. Oxygen via nasal cannula 3 L/min. DuoNeb by nebulizer every 4 hours. Pepcid 20 mg p.o. twice daily. Cipro Oxyzyme antibiotic orally. Recheck CBC BMP in the morning --Alcohol abuse We will put the patient on thiamine folic acid and banana bag daily. We counseled the patient regarding quit drinking. --Cirrhosis Pepcid 20 mg p.o. twice daily. Quit drinking. Continue home medication. Recheck CMP in the morning -- Thrombocytopenia We will monitor the patient closely. Due to alcoholic liver disease and cirrhosis Closely monitor -- DVT prophylaxis SCD for DVT prophylaxis. Pepcid 20 mg p.o. twice daily for GI prophylaxis. Patient is a full code Closely monitor the patient and adjust management as needed Plan of care reviewed with the patient and his nurse Closely monitor the patient 04/14/2022; patient's symptoms significantly improved Today patient is more alert and awake, ambulate as tolerated Possible discharge in 1 to 2 days if stable 04/15/22; follow PT evaluation, out of bed to chair Ambulate as tolerated, possible discharge tomorrow if stable History Interval history: I have seen and examined the patient at the bedside Patient's chart and medications reviewed Patient is more alert and awake today Intermittent lethargy, probably secondary to medications Vital signs collateral No new overnight events reported by the nursing Hospitalist Physical - Constitutional Vitals: Temp Pulse Resp BP Pulse Ox 98.5 F 60 20 104/40 98 04/15/22 05:28 04/15/22 05:28 04/15/22 05:28 04/15/22 05:28 04/15/22 05:28 General appearance: Present: no acute distress, well-nourished, obese - EENT Eyes: Present: PERRL, EOM intact - Neck Neck: Present: supple, normal ROM - Respiratory Respiratory effort: normal Respiratory: bilateral: diminished, negative: rales, rhonchi, wheezing - Cardiovascular Rhythm: regular Heart Sounds: Present: S1 & S2 - Extremities Extremities: no ischemia, No edema - Abdominal General gastrointestinal: soft, non-tender, non-distended, normal bowel sounds - Integumentary Integumentary: Present: clear, warm - Psychiatric Psychiatric: appropriate mood/affect, other (Lethargic some cognitive medications) - Neurologic Neurologic: moves all extremities HEART Score - HEART Score Troponin: Troponin T < 0.010 ng/mL (0.00-0.029) 04/12/22 20:43 Results - Labs CBC & Chem 7: 04/14/22 04:47 04/14/22 04:47 Labs: Laboratory Last Values WBC 4.3 K/mm3 (4.5-11.0) L 04/14/22 04:47 RBC 3.51 M/mm3 (3.65-5.03) L 04/14/22 04:47 Hgb 9.6 gm/dl (11.8-15.2) L 04/14/22 04:47 Hct 29.6 % (35.5-45.6) L 04/14/22 04:47 MCV 84 fl (84-94) 04/14/22 04:47 MCH 27 pg (28-32) L 04/14/22 04:47 MCHC 32 % (32-34) 04/14/22 04:47 RDW 14.7 % (13.2-15.2) 04/14/22 04:47 Plt Count 54 K/mm3 (140-440) L 04/14/22 04:47 Lymph % (Auto) 18.9 % (13.4-35.0) 04/14/22 04:47 [place] % (Auto) 12.7 % (0.0-7.3) H 04/14/22 04:47 Eos % (Auto) 3.5 % (0.0-4.3) 04/14/22 04:47 Baso % (Auto) 0.5 % (0.0-1.8) 04/14/22 04:47 Lymph # (Auto) 0.8 K/mm3 (1.2-5.4) L 04/14/22 04:47 [place] # (Auto) 0.5 K/mm3 (0.0-0.8) 04/14/22 04:47 Eos # (Auto) 0.1 K/mm3 (0.0-0.4) 04/14/22 04:47 Baso # (Auto) 0.0 K/mm3 (0.0-0.1) 04/14/22 04:47 Seg Neutrophils % 64.4 % (40.0-70.0) 04/14/22 04:47 Seg Neutrophils # 2.8 K/mm3 (1.8-7.7) 04/14/22 04:47 PT 16.0 Sec. (12.2-14.9) H 04/12/22 20:43 INR 1.15 (0.87-1.13) H 04/12/22 20:43 APTT 43.7 Sec. (24.2-36.6) H 04/12/22 20:43 Sodium 137 mmol/L (137-145) 04/14/22 04:47 Potassium 3.9 mmol/L (3.6-5.0) 04/14/22 04:47 Chloride 110.3 mmol/L (98-107) H 04/14/22 04:47 Carbon Dioxide 18 mmol/L (22-30) L 04/14/22 04:47 Anion Gap 13 mmol/L 04/14/22 04:47 BUN 14 mg/dL (9-20) 04/14/22 04:47 Creatinine 1.2 mg/dL (0.8-1.3) 04/14/22 04:47 Estimated GFR > 60 ml/min 04/14/22 04:47 BUN/Creatinine Ratio 12 % 04/14/22 04:47 Glucose 94 mg/dL (75-100) 04/14/22 04:47 Lactic Acid 1.60 mmol/L (0.7-2.0) 04/12/22 20:43 Calcium 8.5 mg/dL (8.4-10.2) 04/14/22 04:47 Total Bilirubin 0.70 mg/dL (0.1-1.2) 04/14/22 04:47 AST 36 units/L (5-40) 04/14/22 04:47 ALT 14 units/L (7-56) 04/14/22 04:47 Alkaline Phosphatase 64 units/L (35-129) 04/14/22 04:47 Ammonia 40.0 umol/L (25-60) 04/12/22 20:43 Total Creatine Kinase 44 units/L (55-170) L 04/12/22 20:43 Troponin T < 0.010 ng/mL (0.00-0.029) 04/12/22 20:43 Total Protein 6.6 g/dL (6.3-8.2) 04/14/22 04:47 Albumin 2.7 g/dL (3.9-5) L 04/14/22 04:47 Albumin/Globulin Ratio 0.7 % 04/14/22 04:47 TSH 1.480 mlU/mL (0.270-4.200) 04/12/22 20:43 Salicylates 1.5 mg/dL (2.8-20.0) L 04/12/22 20:43 Acetaminophen 5.0 ug/mL (10.0-30.0) L 04/12/22 20:43 Plasma/Serum Alcohol < 0.01 % (0-0.07) 04/13/22 01:44 Microbiology: Microbiology 04/12/22 20:43 Peripheral/Venous Blood Culture - Preliminary NO GROWTH AFTER 48 HOURS 04/12/22 20:43 Peripheral/Venous Blood Culture - Preliminary NO GROWTH AFTER 48 HOURS Peres/IV: Voiding Method Toilet Active Medications - Current Medications Current Medications: Generic Name Dose Route Start Last Admin Trade Name Freq PRN Reason Stop Dose Admin Acetaminophen 650 mg 04/13/22 03:47 04/13/22 10:20 Acetaminophen 325 Mg Tab PO 650 mg Q4H PRN Administration Pain MILD(1-3)/Fever >100.5/LAINEZ Albuterol 2.5 mg 04/13/22 03:47 Albuterol 2.5 Mg/3 Ml Nebu IH Q3HRT PRN Shortness Of Breath Famotidine 20 mg 04/13/22 10:00 04/14/22 23:18 Famotidine 20 Mg Tab PO 20 mg BID NORMAN Administration Folic Acid 1 mg 04/13/22 10:00 04/14/22 12:46 Folic Acid 1 Mg Tab PO 1 mg QDAY NORMAN Administration Dextrose/Sodium Chloride 1,000 mls @ 100 mls/hr 04/13/22 04:00 04/14/22 18:08 D5/0.45ns IV 100 mls/hr DIRECT NORMAN Administration Lactulose 20 gm 04/13/22 10:00 04/14/22 23:18 Lactulose 20 Gm/30 Ml Oral Liqd PO 20 gm BID NORMAN Administration Morphine Sulfate 2 mg 04/13/22 03:47 04/13/22 10:20 Morphine 2 Mg/1 Ml Inj IV 2 mg Q4H PRN Administration Pain, Moderate (4-6) Morphine Sulfate 4 mg 04/13/22 03:47 Morphine 4 Mg/1 Ml Inj IV Q4H PRN Pain , Severe (7-10) Multivitamins 1 each 04/13/22 10:00 04/14/22 12:39 Multivitamins ,Therapeutic Tab PO 1 each DAILY NORMAN Administration Ondansetron HCl 4 mg 04/13/22 03:47 Ondansetron 4 Mg/2 Ml Inj IV Q8H PRN Nausea And Vomiting Propranolol HCl 20 mg 04/13/22 10:00 04/14/22 23:00 Propranolol 10 Mg Tab PO Not Given BID NORMAN Rifaximin 550 mg 04/13/22 10:00 04/14/22 23:18 Rifaximin 550 Mg Tab PO 550 mg BID NORMAN Administration Sodium Chloride 10 ml 04/13/22 10:00 04/14/22 23:19 Sodium Chloride 0.9% 10 Ml Flush Syringe IV 10 ml BID NORMAN Administration Sodium Chloride 10 ml 04/13/22 03:47 Sodium Chloride 0.9% 10 Ml Flush Syringe IV PRN PRN LINE FLUSH Spironolactone 25 mg 04/13/22 10:00 04/14/22 12:46 Spironolactone 25 Mg Tab PO 25 mg QDAY NORMAN Administration Thiamine HCl 100 mg 04/13/22 10:00 04/14/22 12:40 Thiamine 100 Mg Tab PO 100 mg QDAY NORMAN Administration
[2022-04-15] MEDS: THIAMINE 100 MG TAB PO SCH (09:27)
[2022-04-15] MEDS: MULTIVITAMINS ,THERAPEUTIC TAB PO SCH (09:28)
[2022-04-15] MEDS: RIFAXIMIN 550 MG TAB PO SCH ×2 (09:28→22:38)
[2022-04-15] MEDS: PROPRANOLOL 10 MG TAB PO SCH (09:28)
[2022-04-15] MEDS: SPIRONOLACTONE 25 MG TAB PO SCH (09:28)
[2022-04-15] MEDS: LACTULOSE 20 GM/30 ML ORAL LIQD PO SCH ×2 (09:29→22:40)
[2022-04-15] MEDS: FOLIC ACID 1 MG TAB PO SCH (09:29)
[2022-04-15] MEDS: MORPHINE 2 MG/1 ML INJ IV PRN (09:29)
[2022-04-15] MEDS: FAMOTIDINE 20 MG TAB PO SCH ×2 (09:29→22:39)
[2022-04-15] MEDS: D5W/0.45% NACL 1,000 ML IV SCH (09:30)
[2022-04-15] MEDS ORDERED: MORPHINE 2 MG/1 ML INJ IV PRN (18:05)
[2022-04-16] MEDS: PROPRANOLOL 10 MG TAB PO SCH ×2 (00:11→11:18)
[2022-04-16] MEDS: SPIRONOLACTONE 25 MG TAB PO SCH (11:18)
[2022-04-16] MEDS: RIFAXIMIN 550 MG TAB PO SCH (11:18)
[2022-04-16] MEDS: FAMOTIDINE 20 MG TAB PO SCH (11:18)
[2022-04-16] MEDS: THIAMINE 100 MG TAB PO SCH (11:18)
[2022-04-16] MEDS: MULTIVITAMINS ,THERAPEUTIC TAB PO SCH (11:18)
[2022-04-16] MEDS: LACTULOSE 20 GM/30 ML ORAL LIQD PO SCH (11:19)
[2022-04-16 12:11] VITALS: BP 109/61
--- NOTE | 2022-04-16 12:46 | Discharge Summary ---
Providers - Providers Date of Admission: 04/13/22 03:47 Date of discharge: 04/16/22 Attending physician: SELAM PEARL 04/14/22 19:31 Physical Therapy Evaluation and Treat [CONS] Routine Comment: Discharge needs Reason For Exam: Altered level of consciousness/evaluate and treat Primary care physician: [employer] Hospitalization Reason for admission: Acute toxic metabolic encephalopathy/AMS Condition: Fair Pertinent studies: CT head without contrast; mild microvascular angiopathy, cerebral atrophy withou t clear CT evidence of acute abnormality Chest x-ray; no acute abnormality noted Hospital course: Very pleasant 66-year-old male with significant past medical history of chronic alcohol abuse hepatic cirrhosis thrombocytopenia recurrent admissions in the past was admitted through emergency room with altered level of consciousness, acute toxic metabolic encephalopathy CT head without contrast did not show any acute abnormalities Patient was noted to be in alcohol withdrawal symptoms patient was admitted closely monitored medications optimized patient remains confused next 2 to 3 days afforded admission sometimes requiring restraints for safety. Patient was closely monitored for alcohol withdrawal symptoms. Discharge [facility] protocol\ Patient's symptoms slowly but gradually improved Today is comfortable no new complaints, vital signs stable, physical examination prior to discharge is unremarkable Patient is stable , ambulatory in room without support Patient is stable at discharge. Advised to follow-up with primary care physician, advised to seek alcohol rehabilitation [place] Discharge diagnosis: --Acute toxic metabolic encephalopathy Admit the patient to the medical floor telemetry. Acute metabolic encephalopathy is most likely secondary to UTI and liver cirrhosis. Oxygen via nasal cannula 3 L/min. DuoNeb by nebulizer every 4 hours. Pepcid 20 mg p.o. twice daily. Cipro Oxyzyme antibiotic orally. Recheck CBC BMP in the morning --Alcohol abuse We will put the patient on thiamine folic acid and banana bag daily. We counseled the patient regarding quit drinking. --Alcohol withdrawal symptoms/very mild Resolved -Cirrhosis liver Pepcid 20 mg p.o. twice daily. Quit drinking. Continue home medication. Recheck CMP in the morning -- Thrombocytopenia We will monitor the patient closely. Due to alcoholic liver disease and cirrhosis Closely monitor -Obesity BMI 35.9 Advised diet modification, exercise as tolerated, weight reduction when medically stable --Severe protein calorie malnutrition; Nutrition supplements and supportive care Nutrition consult if needed --Severe hypoalbuminemia; albumin 2.7 Nutrition supplements and supportive care Strongly advised to quit alcohol, continue vitamins Thiamine folic acid and multivitamins - DVT prophylaxis- SCD for DVT prophylaxis. Pepcid 20 mg p.o. twice daily for GI prophylaxis. Patient is a full code. Patient is alert awake oriented, ambulatory in the room independently No tremulousness or agitation Stable to PR home Strongly advised alcohol rehabilitation Strongly advised to seek alcohol rehabilitation upon discharge Patient verbalized understanding Advance care planning at discharge 30 minutes Preventive health care management and counseling 30 minutes Stable at discharge; Disposition: 01 HOME / SELF CARE / HOMELESS Final Discharge Diagnosis (Prints w/discharge instructions): Acute toxic metabolic encephalopathy resolved. Alcohol abuse. Alcohol withdrawal symptoms very mild resolved. Cirrhosis liver due to alcohol intake. Thrombocytopenia mixed obesity BMI 55.9. Severe protein calorie malnutrition. Severe hypoalbuminemia albumin 2.7. DVT prophylaxis Time spent for discharge: 35 minutes Core Measure Documentation - Palliative Care Palliative Care/ Comfort Measures: Not Applicable - Core Measures Any of the following diagnoses?: none Exam - Constitutional Vitals: Temp Pulse Resp BP Pulse Ox 97.8 F 61 18 109/61 99 04/16/22 10:29 04/16/22 10:29 04/16/22 10:29 04/16/22 10:29 04/16/22 10:29 General appearance: Present: no acute distress, well-nourished, obese - EENT Eyes: Present: PERRL, EOM intact - Neck Neck: Present: supple, normal ROM - Respiratory Respiratory effort: normal Respiratory: bilateral: diminished, negative: rales, rhonchi, wheezing - Cardiovascular Rhythm: regular Heart Sounds: Present: S1 & S2 - Extremities Extremities: no ischemia - Abdominal General gastrointestinal: Present: soft, non-tender, non-distended, normal bowel sounds - Integumentary Integumentary: Present: clear, warm - Musculoskeletal Musculoskeletal: strength equal bilaterally, generalized weakness - Psychiatric Psychiatric: appropriate mood/affect, cooperative - Neurologic Neurologic: moves all extremities Plan Activity: advance as tolerated, fall precautions Diet: regular Additional Instructions: Fall precautions. Aspiration precautions. Strongly advised to seek alcohol rehabilitation. Strongly advised to quit alcohol intake verbalized understanding. If you have worsening symptoms contact MD or go to the nearest emergency room as needed. Advised to go to [facility] in 1 to 2 weeks Follow up with: REBEKAH GUTIERREZ MD [Primary Care Provider] - 3-5 Days CONNOR SARMIENTO MD [Staff Physician] - 14 Days Prescriptions: Famotidine [Pepcid] 20 mg PO BID #60 tablet
== END 2022-04-16 16:15 | disposition home or self-care (01) | DRG 91 ==
LOC: ED 17:51 → 3A 04-13 03:47
PROVIDERS: ADMIT Hospitalist; ATTEND Internal Medicine
DX: G92.8 Other toxic encephalopathy (principal); E43 Unspecified severe protein-calorie malnutrition; N39.0 Urinary tract infection, site not specified; K74.60 Unspecified cirrhosis of liver; D69.6 Thrombocytopenia, unspecified; F10.10 Alcohol abuse, uncomplicated; Y90.9 Presence of alcohol in blood, level not specified; E66.9 Obesity, unspecified; Z68.35 Body mass index [BMI] 35.0-35.9, adult; E88.09 Other disorders of plasma-protein metabolism, not elsewhere classified
CPT/HCPCS: 36415; 70450; 71045; 80053; 80320; 82140; 82550; 84443; 84484; 85025; 85610; 85730; 87040; 93005; G0378; J3490; J7070; G0480; J2270; J3411; J7030